=== PATIENT | female | born 1965 | race Caucasian/White ===

== ENCOUNTER 2016-07-12 06:05 | Emergency (ER) | payer BC ==
[2016-07-12] MEDS ORDERED: MORPHINE 4 MG/ML SYR ONE (08:00)
== END 2016-07-12 10:05 | disposition home or self-care (01) ==
LOC: ER 06:05
DX: N30.00 Acute cystitis without hematuria (principal); M51.36 Other intervertebral disc degeneration, lumbar region; S39.012A Strain of muscle, fascia and tendon of lower back, initial encounter; B37.3 Candidiasis of vulva and vagina; R10.9 Unspecified abdominal pain; Z79.899 Other long term (current) drug therapy
CPT/HCPCS: 36415; 74176; 80053; 81001; 83690; 85025; 96361; 96374; 96375